=== PATIENT | male | born 1950 | race Caucasian/White ===

== ENCOUNTER 2016-05-21 19:22 | Emergency (ER) | payer SELFPAY ==
[~2016-05-21] VITALS: Ht 170.2 cm; Wt 86.3 kg
[~2016-05-21 19:22] MED LIST: IBUP-1547 PO; VICOT PO
[2016-05-21] MEDS ORDERED: LISI-662 PO (19:59)
[2016-05-21 20:59] VITALS: BP 151/99
[2016-05-21] MEDS ORDERED: ACETAMINOPHEN 500 MG TABLET PO ONE (21:15)
== END 2016-05-21 22:04 | disposition home or self-care (01) ==
LOC: EMS 19:24
DX: S62.512A Displaced fracture of proximal phalanx of left thumb, initial encounter for closed fracture (principal); I10 Essential (primary) hypertension; F12.90 Cannabis use, unspecified, uncomplicated; F17.210 Nicotine dependence, cigarettes, uncomplicated; W01.0XXA Fall on same level from slipping, tripping and stumbling without subsequent striking against object, initial encounter; Y93.89 Activity, other specified; Y92.89 Other specified places as the place of occurrence of the external cause; Y99.8 Other external cause status
CPT/HCPCS: 99284

== ENCOUNTER 2016-05-22 09:30 | Emergency (ER) | payer SELFPAY ==
[~2016-05-22] VITALS: Ht 170.2 cm; Wt 86.4 kg
[~2016-05-22 09:30] MED LIST changes: +LISI-662 PO; -VICOT PO
[2016-05-22 11:45] VITALS: BP 155/98
== END 2016-05-22 12:03 | disposition home or self-care (01) ==
LOC: EMS 09:32
DX: S62.512A Displaced fracture of proximal phalanx of left thumb, initial encounter for closed fracture (principal); I10 Essential (primary) hypertension; F17.210 Nicotine dependence, cigarettes, uncomplicated; W19.XXXA Unspecified fall, initial encounter; Y93.89 Activity, other specified; Y92.89 Other specified places as the place of occurrence of the external cause; Y99.8 Other external cause status
CPT/HCPCS: 99283